=== PATIENT | male | born 1990 | race Two or more races ===

== ENCOUNTER 2024-06-27 09:30 | Emergency (ER) | payer SELFPAY ==
[~2024-06-27] VITALS: Ht 165.1 cm; Wt 88.0 kg
--- NOTE | 2024-06-27 09:58 | ED.PDOC ---
History of Present Illness HPI Comments 34 year old male presents to the ED with a chief complaint of RT sided facial numbness onset 4 days. Patient began experiencing RT sided facial numbness 4 days ago as well as headache, not able to fully close RT eye. Denies any PMHx as well as dizziness, chest pain, shortness of breath, nausea, vomiting, injury, trauma, head injury, fever, chills. No other symptoms or modifying factors present at this time. Chief Complaint: Face pain Time Seen by MD: 09:48 Reviewed Notes: Medications, Allergies Allergies: Coded Allergies: NO KNOWN ALLERGIES (Unverified , 06/27/24) Information Source: Patient Mode of Arrival: Ambulatory Severity: Moderate Timing: Days Duration: Since onset Prehospital treatment: None Past Medical History PAST MEDICAL HISTORY: Denies Surgical History (Other): Knee surgery Family History Family History: Reviewed,noncontributory to illness, No family hx of Cancer, No family hx of DM, No family hx of Heart binu, No family hx of HTN, No family hx ofKidney binu, No family hx of Liver binu, No family hx of Lung binu, No family hx of Stroke Social History Smoker: Non-Smoker Alcohol: Denies ETOH Use Drugs: Denies Drug Use Lives In: Home Constitutional: denies: chills, diaphoresis, fatigue, fever, malaise, sweats, weakness, others EENTM: denies: blurred vision, double vision, ear bleeding, ear discharge, ear drainage, ear pain, ear ringing, eye pain, eye redness, hearing loss, mouth pain, mouth swelling, nasal discharge, nose bleeding, nose congestion, nose pain, photophobia, tearing, throat pain, throat swelling, voice changes, others Respiratory: denies: cough, hemoptysis, orthopnea, SOB at rest, shortness of breath, SOB with excertion, stridor, wheezing, others Cardiovascular: denies: chest pain, dizzy spells, diaphoresis, Dyspnea on exertion, edema, irregular heart beat, left arm pain, lightheadedness, palpitations, PND, syncope, others Gastrointestinal: denies: abdomen distended, abdominal pain, blood streaked bowels, constipated, diarrhea, dysphagia, difficulty swallowing, hematemesis, melena, nausea, poor appetite, poor fluid intake, rectal bleeding, rectal pain, vomiting, others Genitourinary: denies: burning, dysuria, flank pain, frequency, hematuria, incontinence, penile discharge, penile sore, pain, testicle pain, testicle swelling, urgency, others Neurological: reports: headache, weakness (RT facial ); denies: dizziness, fainting, left sided numbness, left sided weakness, numbness, paresthesia, pre- existing deficit, right sided numbness, right sided weakness, seizure, speech problems, tingling, tremors, others Musculoskeletal: denies: back pain, gout, joint pain, joint swelling, muscle pain, muscle stiffness, neck pain, others Integumetry: denies: bruises, change in color, change in hair/nails, dryness, laceration, lesions, lumps, rash, wounds, others Allergic/Immunocompromised: denies: Difficulty Healing, Frequent Infections, Hives, Itching, others Hematologic/Lymphatic: denies: anemia, blood clots, easy bleeding, easy bruising, swollen glands, others Endocrine: denies: excessive hunger, excessive sweating, excessive thirst, excessive urination, flushing, intolerance to cold, intolerance to heat, unexplained weight gain, unexplained weight loss, others Psychiatric: denies: anxiety, bipolar disorder, depression, hopeless, panic disorder, schizophrenia, sleepless, suicidal, others All Other Systems: Reviewed and Negative Physical Exam General Appearance: No Apparent Distress, Normal HEENT: Normal ENT Inspection, Pharynx Normal, TMs Normal Neck: Full Range of Motion, Non-Tender, Normal, Normal Inspection Respiratory: Chest Non-Tender, Lungs Clear, No Accessory Muscle Use, No Respiratory Distress, Normal Breath Sounds Cardiovascular: No Edema, No JVD, No Murmur, No Gallop, Normal Peripheral Pulses, Regular Rate/Rhythm Breast Exam: Deferred Gastrointestinal: No Organomegaly, Non Tender, No Pulsatile Mass, Normal Bowel Sounds, Soft Genitalia: Deferred Pelvic: Deferred Rectal: Deferred Extremities: No calf tenderness, Normal capillary refill, Normal inspection, Normal range of motion, Non-tender, No pedal edema Musculoskeletal : Apperance: Normal Neurologic: Alert, greige goods marker II-XII nml as Tested, Normal Mood, Other (RT sided facial weak ness involving forehead) Cerebellar Function: Normal Reflexes: Normal Skin: Dry, Normal Color, Warm Lymphatic: No Adenopathy Was a procedure done? Was a procedure done?: No Differential Dx Considerations may include: Greenwood's palsy, X-Ray, Labs, Meds, VS Vital Signs Date Time Temp Pulse Resp B/P (MAP) Pulse Ox O2 Delivery O2 Flow Rate FiO2 06/27/24 09:58 98.7 79 16 136/88 (104) 97 98.7 Time of 1ST Reevaluation: 10:18 Reevaluation 1ST: Unchanged Patient Education/Counseling: Diagnosis, Treatment, Prognosis Family Education/Counseling: No Family Present Departure 1 Departure Time of Disposition: 10:25 (Patient has right-sided facial droop that involves the forehead and eyelid. Patient has no other focal deficits. 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 We will discharge patient home with outpatient follow up) Impression: Primary Impression: Greenwood's palsy Disposition: HOME / SELF CARE / HOMELESS Condition: Stable Additional Instructions: You have Greenwood's Palsy. This is inflammation of your facial nerve. This can be caused by a virus. You were prescribed antiviral medication and steroids. Please take as directed. You should use eye drops to prevent your eye from drying out. You can tape your eye shut when you sleep to keep it from drying out. It is important to follow up with your regular doctor within one week. If your symptoms worsen or you have any other concerns then please return to the ER. e-Prescriptions Prednisone (Prednisone) 20 Mg Tab 60 MG PO DAILY for 7 Days, #21 MG Prov: JOSR AVENDANO MD 06/27/24 Valacyclovir Hcl (Valtrex) 1 Gm Tab 1 TAB PO TID for 7 Days, #21 TAB Prov: JOSR AVENDANO MD 06/27/24 Discharged With: Self Critical Care Note Critical Care Time?: No Stability Stability form required: No I personally scribed for JOSR AVENDANO MD ([email or web address]) on 06/27/24 at 09:58. Electronically submitted by Wandy Patel ([email or web address]). JOSR AVENDANO MD Jun 27, 2024 09:58
[2024-06-27] MEDS ORDERED: PRED20TA2 PO (10:26)
[2024-06-27] MEDS ORDERED: VALA1TAB PO (10:26)
[2024-06-27 10:39] VITALS: BP 136/88; PULSE 79; RESP 16; TEMP 98.7; O2SAT 97
== END 2024-06-27 10:42 | disposition home or self-care (01) ==
LOC: ER 09:35
DX: G51.0 Bell's palsy (principal); Z98.890 Other specified postprocedural states